=== PATIENT | female | born 1960 | race African-American/Black ===

== ENCOUNTER 2020-12-25 07:25 | Outpatient (CLI) | payer OTHER ==
[~2020-12-25] VITALS: Ht 175.3 cm; Wt 184.0 kg
[2020-12-25] MEDS ORDERED: ceFAZolin SODIUM IV Push 1 GM VIAL. IVP ONE (07:45)
[2020-12-25 07:56] LABS: BASO % 1 % (0-3); EOS # 0.3 x10^3/uL (0.0-0.7); EOS % 4 % (0-3); HEMOGLOBIN 11.4 g/dL (12.0-15.5); LYMPH # 1.5 x10^3/uL (1.0-4.8); LYMPH % 23 % (24-48); MEAN CORPUSCULAR HEMOGLOBIN 29 pg (25-35); MEAN CORPUSCULAR HGB CONC 32 g/dL (31-37); MEAN CORPUSCULAR VOLUME 92 fL (79-100); MONO # 0.8 x10^3/uL (0.0-1.1); MONO % 12 % (0-9); NEUT # 4.1 x10^3/uL (1.8-7.7); NEUT % 61 % (31-73); PLATELET COUNT 195 x10^3/uL (140-400); WHITE BLOOD COUNT 6.7 x10^3/uL (4.0-11.0)
[2020-12-25 08:02] VITALS: BP 116/70
[2020-12-25 08:06] LABS: CALCIUM 8.9 mg/dL (8.5-10.1); CREATININE 6.3 mg/dL (0.6-1.0); GFR 8.2; POTASSIUM 4.4 mmol/L (3.5-5.1)
[2020-12-25 08:17] LABS: ALBUMIN 3.3 g/dL (3.4-5.0); ALBUMIN/GLOBULIN RATIO 0.8 (1.0-1.7); TOTAL BILIRUBIN 0.6 mg/dL (0.2-1.0); TOTAL PROTEIN 7.6 g/dL (6.4-8.2)
[2020-12-25] MEDS ORDERED: MIDAZOLAM HCL/PF 2 MG/2 ML VIAL. IV ONE (08:30)
[2020-12-25] MEDS ORDERED: fentaNYL PF VIAL 100 MCG/2 ML VIAL IV ONE (08:30)
[2020-12-25] MEDS ORDERED: LIDOCAINE 2%/EPI 1:100,000 20 ML VIAL. IJ ONE (08:30)
[2020-12-25] MEDS ORDERED: MIDAZOLAM HCL/PF 2 MG/2 ML VIAL. ONE (08:37)
[2020-12-25] MEDS ORDERED: fentaNYL PF VIAL 100 MCG/2 ML VIAL ONE (08:37)
[2020-12-25] MEDS ORDERED: METO-239 PO (08:42)
[2020-12-25] MEDS ORDERED: METO5TAB4 PO (08:42)
[2020-12-25] MEDS ORDERED: ISOS30TA68 PO (08:42)
[2020-12-25] MEDS ORDERED: POTA20TA4 PO (08:42)
[2020-12-25] MEDS ORDERED: AMIO200T6 PO (08:42)
[2020-12-25] MEDS ORDERED: IVAB5TAB PO (08:42)
[2020-12-25] MEDS ORDERED: INSU100I13 SQ (08:42)
[2020-12-25] MEDS ORDERED: MEXI150C PO (08:42)
[2020-12-25] MEDS ORDERED: GABA600T7 PO (08:42)
[2020-12-25] MEDS ORDERED: APIX5TAB PO (08:42)
[2020-12-25] MEDS ORDERED: BUME1TAB3 PO (08:42)
[2020-12-25] MEDS ORDERED: HYDR-2869 PO (08:42)
[2020-12-25] MEDS ORDERED: EZET10TA20 PO (08:42)
[2020-12-25] MEDS ORDERED: INSU100C4 SQ (08:42)
[2020-12-25] MEDS ORDERED: ceFAZolin SODIUM 3 GM in IV DEXTROSE 5% 100ML 100 ML IV PRN (09:00)
[2020-12-25 09:53] VITALS: BP 151/88
[2020-12-25 10:10] VITALS: BP 130/62
[2020-12-25 10:25] VITALS: BP 120/74
[2020-12-25 10:40] VITALS: BP 115/62
[2020-12-25 11:00] VITALS: BP 119/53
--- NOTE | 2020-12-25 11:02 | NUR ---
Patient's PIV removed. No bleeding at new dialysis access site. VS stable. Instructions provided on site care, sedation. Patient and verbalized understanding. All belongings/clothing taken w/ patient at time of d/c. No questions at time of d/c. Waiting for patient's ride to arrive at this time.
--- NOTE | 2020-12-25 13:28 | RAD ---
Procedure: 1. Removal of current right internal jugular tunnel dialysis catheter 2. Placement of the new, right internal jugular tunneled dialysis catheter with ultrasound and fluoro scopic guidance, Indication: Probable infected right internal jugular catheter, left-sided ICD device Discussion: Consent: The procedure was explained in its entirety to the patient or the patients designated repres entative by a member of the treatment team, including a discussion of the risks, benefits and commonl y accepted alternatives to the procedure, as well as the expected consequences of no therapy whatsoev er. Discussion of the risks included, but was not limited to, those that are most frequent and thos e that are rare but possibly severe or life-threatening, as well as the possibility of unforeseen com plications. was prepped and draped using maximum sterile technique, including the use of: Current guideline appr maritza cutaneous antisepsis, a large sterile sheet to establish a sterile field. Additionally the opera tor wore a hat, mask, sterile gloves, a sterile gown during the procedure as well as practiced accept able hand hygiene prior to placing the line. Ultrasound showed a patent right internal jugular vein. The skin of the right upper chest and right neck was prepped and draped using maximal sterile barrier technique. Local anesthesia was administered over the right internal jugular vein just above the right clavicle. The right internal jugular vein was accessed using direct ultrasound guidance and micropuncture tech nique. Reference ultrasound images were saved medical record. A guidewire was advanced into the IVC. A 19 cm tip to cuff palindrome dialysis catheter was advanced from a small dermatotomy several centim eters inferior to the access site, to the access site. This new access site and tunnel were separate from the prior site. Following dilatation a peel-away sheath was advanced over the guidewire. The new dialysis catheter was delivered through the peel-away sheath such that it's tip was in the proximal right atrium with the patient supine. The new catheter was found to flush and aspirate normally. The catheter was secured in place. No immediate complications were identified. Sterile dressings were applied. Fluoroscopy time: 0.7 Dose area product: 19 Sedation: The procedure was performed under conscious sedation including continuous cardiopulmonary m onitoring via a dedicated sedation nurse. [id number]-ylfy sedation time: 30 minutes Impression: 1. Removal of right internal jugular tunnel dialysis catheter 2. Placement of a new right internal jugular tunnel dialysis catheter through separate, new access an d tunnel site Electronically signed by: Richard Deal MD (12/25/2020 1:25 PM) [id number]
== END 2020-12-25 11:35 | disposition home or self-care (01) ==
LOC: INTRAD 07:25
PROVIDERS: ATTEND Internal Medicine Nephrology
DX: I13.2 Hypertensive heart and chronic kidney disease with heart failure and with stage 5 chronic kidney disease, or end stage renal disease (principal); I50.9 Heart failure, unspecified; N18.6 End stage renal disease; E11.22 Type 2 diabetes mellitus with diabetic chronic kidney disease; E66.9 Obesity, unspecified; J44.9 Chronic obstructive pulmonary disease, unspecified; G47.30 Sleep apnea, unspecified; Z20.822 Contact with and (suspected) exposure to COVID-19; Z90.49 Acquired absence of other specified parts of digestive tract; Z98.890 Other specified postprocedural states; Z79.4 Long term (current) use of insulin; Z79.899 Other long term (current) drug therapy; Z88.8 Allergy status to other drugs, medicaments and biological substances; Z99.2 Dependence on renal dialysis
CPT/HCPCS: 36415; 36558; 36589; 76937; 77001; 80053; 85025; 85610; 87426; 99152; 99153; C1750; C1769; C1892; J0690; J2250; J3010; J3490; J7060